=== PATIENT | female | born 1960 | race Caucasian/White ===

== ENCOUNTER 2023-05-11 10:52 | Inpatient (IN) | payer OTHER ==
[2023-05-11] MEDS ORDERED: ACETAMINOPHEN 500 MG TAB ONE (11:42)
[2023-05-11] MEDS ORDERED: PROMETHAZINE INJ 25 MG/ML AMP ONE (11:42)
[2023-05-11 11:49] LABS: Absolute Lymphocytes (CBC) 0.8 K/uL (0.7-4.9); Hematocrit 40.1 % (36.0-45.0); Lymphocytes % 6.1 % (15.3-44.8); MCV 89.8 fL (80-100); MPV 7.9 fL (7.6-11.3); RBC Red Blood Cell Count 4.47 M/uL (3.86-4.86)
[2023-05-11 11:54] LABS: Potassium 3.8 mEq/L (3.5-5.1)
--- NOTE | 2023-05-11 12:12 | RAD REPORT ---
EXAM DESCRIPTION: RAD - Chest Single View - 05/11/2023 11:59 am CLINICAL HISTORY: CHEST PAIN Chest pain. COMPARISON: No comparisons FINDINGS: Portable technique limits examination quality. Moderately severe bilateral pulmonary opacities are present, greater on the right, likely representin g pneumonia. The heart is normal in size. No displaced fractures.
--- NOTE | 2023-05-11 12:47 | EDPHYS ---
Physician Documentation [facility] Name: Vidya Varela Age: 62 yrs Sex: Female : 1960 Arrival Date: 05/11/2023 Time: 10:52 Bed 14 Private MD: ED Physician Chung Lee HPI: 05/11 11:26 This 62 yrs old Female presents to ER via EMS with complaints of Headache, Nausea. ms3 11:26 62-year-old female with past medical history of hypertension presents via [facility] ms3 for chest tightness that began at 6:30 AM. Patient states she is having chills, shaking, nausea, headache. EMS states in route patient's vital signs were stable, patient was given Zofran and IV fluids. Patient's blood glucose level was noted to be 108.. Historical: - Allergies: 11:03 Codeine; db - Home Meds: 11:03 amlodipine 10 mg tablet 1 tab once [Active]; montelukast 10 mg oral tablet 1 tab db [Active]; atorvastatin 20 mg oral tablet 1 tab daily [Active]; escitalopram oxalate 20 mg oral tablet 1 tab daily [Active]; fluticasone propion-salmeterol 232-14 mcg/actuation inhalation Aerosol Powder, Breath Activ.with Sensor [Active]; - PMHx: 11:03 Hypertensive disorder; db - Immunization history:: Client reports receiving the 2nd dose of the Covid vaccine. - Social history:: Smoking status: Patient denies any tobacco usage or history of. ROS: 11:26 Constitutional: Negative for fever, and chills. Respiratory: Negative for shortness of ms3 breath, cough, wheezing, and pleuritic chest pain, Abdomen/GI: Negative for abdominal pain, nausea, vomiting, diarrhea, and constipation, MS/Extremity: Negative for injury and deformity. 11:26 Skin: Negative for injury, rash, and discoloration. 11:26 Cardiovascular: Positive for chest pain. 11:26 Neuro: Positive for headache. Exam: 11:26 Constitutional: This is a well developed, well nourished patient who is awake, alert, ms3 and in no acute distress. Head/Face: Normocephalic, atraumatic. Neck: Trachea midline, no cervical lymphadenopathy. Supple, full range of motion without nuchal rigidity, or vertebral point tenderness. No Meningismus. Chest/axilla: Normal chest wall appearance and motion. Nontender with no deformity. Cardiovascular: Regular rate and rhythm with a normal S1 and S2. No gallops, murmurs, or rubs. Normal PMI, no JVD. No pulse deficits. Respiratory: Lungs have equal breath sounds bilaterally, clear to auscultation and percussion. No rales, rhonchi or wheezes noted. No increased work of breathing, no retractions or nasal flaring. Abdomen/GI: Soft, non-tender, with normal bowel sounds. No distension or tympany. No guarding or rebound. No evidence of tenderness throughout. Skin: Warm, dry with normal turgor. Normal color with no rashes, no lesions, and no evidence of cellulitis. MS/ Extremity: Pulses equal, no cyanosis. Neurovascular intact. Full, normal range of motion. Neuro: Awake and alert, GCS 15, oriented to person, place, time, and situation. Cranial nerves II-XII grossly intact. Motor strength 5/5 in all extremities. Sensory grossly intact. Cerebellar exam normal. Normal gait. 11:30 ECG was reviewed by the Attending Physician. ms3 Vital Signs: 11:00 BP 140 / 85; Pulse 94; Resp 16; Temp 99.7(O); Pulse Ox 95% ; Weight 121.56 kg; Height 5 db ft. 4 in. ; 11:30 BP 148 / 79; Pulse 94; Resp 23; Pulse Ox 92% on 2 lpm NC; db 12:38 BP 138 / 82; Pulse 96; Resp 18; Temp 102(O); Pulse Ox 92% on 3 lpm NC; db 13:00 BP 125 / 73; Pulse 92; Resp 16; Pulse Ox 93% on 3 lpm NC; db 13:30 BP 122 / 74; Pulse 88; Resp 16; Pulse Ox 95% on R/A; db 14:00 BP 116 / 71; Pulse 89; Resp 18; Pulse Ox 94% on 3 lpm NC; db 14:45 BP 122 / 73; Pulse 88; Resp 18; Temp 100.3(O); Pulse Ox 94% on 3 lpm NC; db 11:00 Body Mass Index 46.00 (121.56 kg, 162.56 cm) db MDM: 11:03 Patient medically screened. ms3 11:26 Differential diagnosis: ACS vs Tension POLANCO vs Anxiety. ms3 12:49 Data reviewed: vital signs, nurses notes, lab test result(s), radiologic studies, plain ms3 films, and as a result, I will admit patient. Consideration of Admission/Observation Patient was admitted/placed on observation. Management of patient was discussed with the following: Hospitalist: Discussed case with [employer] PATTERN INSPECTOR with Dr Salcido. He accepts patient on his behalf.. I considered the following discharge prescriptions or medication management in the emergency department Medications were administered in the Emergency Department. See MAR. Independent interpretation of the following test(s) in the Emergency Department X-Ray: My interpretation is CXR image reviewed by me shows R and L lung infiltrates. R>L.. 13:21 Care significantly affected by the following chronic conditions: Hypertension, Obesity. ms3 Counseling: I had a detailed discussion with the patient and/or guardian regarding: the historical points, exam findings, and any diagnostic results supporting the discharge/admit diagnosis, lab results, radiology results, the need for further work-up and treatment in the hospital. Response to treatment: the patient's symptoms have mildly improved after treatment, and as a result, I will admit patient. 05/11 11:03 Order name: Basic Metabolic Panel; Complete Time: 12:35 ms3 05/11 11:03 Order name: CBC with Diff; Complete Time: 12:35 ms3 05/11 11:03 Order name: Troponin HS; Complete Time: 12:35 ms3 05/11 12:35 Order name: Blood Culture Adult (2) ms3 05/11 12:35 Order name: Lactate w/ 2H reflex if indic.; Complete Time: 13:21 ms3 05/11 12:35 Order name: Protime (+inr); Complete Time: 13:21 ms3 05/11 12:35 Order name: Ptt, Activated; Complete Time: 13:21 ms3 05/11 12:35 Order name: LFT's; Complete Time: 13:21 ms3 05/11 11:03 Order name: XRAY Chest (1 view); Complete Time: 12:35 ms3 05/11 11:03 Order name: EKG; Complete Time: 11:04 ms3 05/11 11:03 Order name: Cardiac monitoring; Complete Time: 11:52 ms3 05/11 11:03 Order name: EKG - Nurse/Tech; Complete Time: 11:15 ms3 05/11 11:03 Order name: IV Saline Lock; Complete Time: 11:53 ms3 05/11 11:03 Order name: Labs collected and sent; Complete Time: 11:53 ms3 05/11 11:03 Order name: O2 Per Protocol; Complete Time: 11:53 ms3 05/11 11:03 Order name: O2 Sat Monitoring; Complete Time: 11:53 ms3 05/11 12:35 Order name: Accucheck; Complete Time: 13:11 ms3 05/11 12:35 Order name: IV Saline Lock - Large Bore; Complete Time: 13:11 ms3 05/11 12:35 Order name: Vital Signs; Complete Time: 13:11 ms3 EC:30 Rate is 96 beats/min. Rhythm is regular. QRS Kennedy is Normal. UT interval is normal. QRS ms3 interval is normal. Clinical impression: NSR w/ Non-specific ST/T Changes. Interpreted by me. Reviewed by me. Administered Medications: 11:45 Drug: Acetaminophen PO 1000 mg Route: PO; db 13:32 Follow up: Response: No adverse reaction db 11:45 Drug: Promethazine IVP 25 mg Route: IVP; Site: right antecubital; db 13:32 Follow up: Response: No adverse reaction db 13:20 Drug: Rocephin IV 1 grams Route: IV; Rate: calculated rate; Site: right antecubital; db 13:32 Follow up: Response: No adverse reaction; IV Status: Completed infusion; IV Intake: 50mldb 13:31 Drug: AZITHromycin IVPB 500 mg Route: IVPB; Infused Over: 1 hrs; Site: left antecubital;db 14:46 Follow up: Response: No adverse reaction; IV Status: Completed infusion; IV Intake: db 250ml Disposition Summary: 05/11/23 12:46 Hospitalization Ordered Hospitalization Status: Inpatient Admission ms3 Provider: Demar Salcido ms3 Location: Telemetry/MedSurg (Inpatient) ms3 Condition: Stable ms3 Problem: new ms3 Symptoms: are unchanged ms3 Bed/Room Type: Standard ms3 Room Assignment: 207(05/11/23 14:19) [facility] Diagnosis - Pneumonia, unspecified organism ms3 - Acute respiratory failure with hypoxia ms3 - Fever, unspecified ms3 Forms: - Medication Reconciliation Form ms3 - SBAR form ms3 Signatures: Dispatcher [employer] EDRamo Zavala RN RN ja1 Chung Lee DO DO ms3 Winter Cobian RN RN db Corrections: (The following items were deleted from the chart) 14:19 12:46 ms3 ja1
--- NOTE | 2023-05-11 12:47 | ER ---
Nurse's Notes [facility] Name: Vidya Varela Age: 62 yrs Sex: Female : 1960 Arrival Date: 05/11/2023 Time: 10:52 Bed 14 Private MD: Diagnosis: Pneumonia, unspecified organism;Acute respiratory failure with hypoxia;Fever, unspecified Presentation: 05/11 11:00 Chief complaint: EMS states: Complains of headache and nausea. no chest pain. Anxious. db recent family loss. Glucose 108. High BP, Anxiety. Coronavirus screen: Vaccine status: Patient reports receiving the 2nd dose of the covid vaccine. Client denies travel out of the [place] in the last 14 days. At this time, the client does not indicate any symptoms associated with coronavirus-19. Ebola Screen: Patient negative for fever greater than or equal to 101.5 degrees Fahrenheit, and additional compatible Ebola Virus Disease symptoms Patient denies exposure to infectious person. Patient denies travel to an Ebola-affected area in the 21 days before illness onset. No symptoms or risks identified at this time. Initial Sepsis Screen: Does the patient meet any 2 criteria? HR > 90 bpm. Does the patient have a suspected source of infection? No. Patient's initial sepsis screen is negative. Risk Assessment: Do you want to hurt yourself or someone else? Patient reports no desire to harm self or others. Onset of symptoms was May 11, 2023. 11:00 Method Of Arrival: EMS: [facility] db 11:00 Acuity: LOYD 3 db Triage Assessment: 12:42 Headache History: The patient has had previous headaches and this one is more severe db than previous episodes. General: Appears in no apparent distress. uncomfortable, Behavior is calm, cooperative. Pain: Pain began gradually, Also complains of no other associated symptoms. 14:32 Pain: Pain. db Historical: - Allergies: 11:03 Codeine; db - Home Meds: 11:03 amlodipine 10 mg tablet 1 tab once [Active]; montelukast 10 mg oral tablet 1 tab db [Active]; atorvastatin 20 mg oral tablet 1 tab daily [Active]; escitalopram oxalate 20 mg oral tablet 1 tab daily [Active]; fluticasone propion-salmeterol 232-14 mcg/actuation inhalation Aerosol Powder, Breath Activ.with Sensor [Active]; - PMHx: 11:03 Hypertensive disorder; db - Immunization history:: Client reports receiving the 2nd dose of the Covid vaccine. - Social history:: Smoking status: Patient denies any tobacco usage or history of. Screenin:54 [facility] ED Fall Risk Assessment (Adult) History of falling in the last 3 months, db including since admission No falls in past 3 months (0 pts) Confusion or Disorientation No (0 pts) Intoxicated or Sedated No (0 pts) Impaired Gait No (0 pts) Mobility Assist Device Used No (0 pt) Altered Elimination No (0 pt) Score/Fall Risk Level 0 - 2 = Low Risk Oriented to surroundings, Maintained a safe environment. Abuse screen: Denies threats or abuse. Denies injuries from another. Nutritional screening: No deficits noted. Tuberculosis screening: No symptoms or risk factors identified. Assessment: 11:30 Reassessment: Patient appears in no apparent distress at this time. Patient and/or db family updated on plan of care and expected duration. Pain level reassessed. Patient is alert, oriented x 3, equal unlabored respirations, skin warm/dry/pink. patient complains of a headache. General: Appears in no apparent distress. comfortable, Behavior is calm, cooperative. Pain: Complains of pain in head. Neuro: Level of Consciousness is awake, alert, obeys commands, Oriented to person, place, time, situation, Speech is normal. Respiratory: Airway is patent Respiratory effort is even, unlabored, Respiratory pattern is regular, symmetrical. 11:53 Reassessment: notified Dr. Lee patient O2 saturation dipped down into 80's. Patient db placed on NC 2L. 13:00 Reassessment: Patient appears in no apparent distress at this time. Patient and/or db family updated on plan of care and expected duration. Pain level reassessed. Patient is alert, oriented x 3, equal unlabored respirations, skin warm/dry/pink. 14:10 Reassessment: Patient appears in no apparent distress at this time. Patient and/or db family updated on plan of care and expected duration. Pain level reassessed. Patient is alert, oriented x 3, equal unlabored respirations, skin warm/dry/pink. 14:32 Reassessment: Report given to YUSRA Guy on 2nd floor for 207. db Vital Signs: 11:00 BP 140 / 85; Pulse 94; Resp 16; Temp 99.7(O); Pulse Ox 95% ; Weight 121.56 kg; Height 5 db ft. 4 in. ; 11:30 BP 148 / 79; Pulse 94; Resp 23; Pulse Ox 92% on 2 lpm NC; db 12:38 BP 138 / 82; Pulse 96; Resp 18; Temp 102(O); Pulse Ox 92% on 3 lpm NC; db 13:00 BP 125 / 73; Pulse 92; Resp 16; Pulse Ox 93% on 3 lpm NC; db 13:30 BP 122 / 74; Pulse 88; Resp 16; Pulse Ox 95% on R/A; db 14:00 BP 116 / 71; Pulse 89; Resp 18; Pulse Ox 94% on 3 lpm NC; db 14:45 BP 122 / 73; Pulse 88; Resp 18; Temp 100.3(O); Pulse Ox 94% on 3 lpm NC; db 11:00 Body Mass Index 46.00 (121.56 kg, 162.56 cm) db ED Course: 10:59 Patient arrived in ED. db 11:03 Triage completed. db 11:03 Chung Lee DO is Attending Physician. ms3 11:08 Arm band placed on Patient placed. db 11:08 Maintain EMS IV. Gauge \T\ site: 20 G right AC. db 11:15 Winter Cobian, RN is Primary Nurse. db 11:55 Patient has correct armband on for positive identification. Bed in low position. Side db rails up X 1. Client placed on continuous cardiac and pulse oximetry monitoring. NIBP monitoring applied. 12:00 XRAY Chest (1 view) In Process Unspecified. EDMS 12:46 Demar Salcido MD is Hospitalizing Provider. ms3 12:55 First set of blood cultures drawn by me. db 13:07 Inserted saline lock: 20 gauge in left antecubital area, using aseptic technique. Blood db collected. 13:07 Second set of blood cultures drawn by me. db 14:34 No provider procedures requiring assistance completed. Patient admitted, IV remains in db place. Administered Medications: 11:45 Drug: Acetaminophen PO 1000 mg Route: PO; db 13:32 Follow up: Response: No adverse reaction db 11:45 Drug: Promethazine IVP 25 mg Route: IVP; Site: right antecubital; db 13:32 Follow up: Response: No adverse reaction db 13:20 Drug: Rocephin IV 1 grams Route: IV; Rate: calculated rate; Site: right antecubital; db 13:32 Follow up: Response: No adverse reaction; IV Status: Completed infusion; IV Intake: 50mldb 13:31 Drug: AZITHromycin IVPB 500 mg Route: IVPB; Infused Over: 1 hrs; Site: left antecubital;db 14:46 Follow up: Response: No adverse reaction; IV Status: Completed infusion; IV Intake: db 250ml Medication: 14:32 VIS not applicable for this client. db Intake: 13:32 IV: 50ml; Total: 50ml. db 14:46 IV: 250ml; Total: 300ml. db Outcome: 12:46 Decision to Hospitalize by Provider. ms3 14:36 Admitted to ER Hold. Please see [facility] for further documentation. db 14:36 Condition: stable 14:36 Instructed on the need for admit. 14:46 Patient left the ED. db Signatures: Dispatcher [employer] EDMS Chung Lee DO DO ms3 Winter Cobian, RN RN db
[2023-05-11 13:08] LABS: Protime INR 0.97
[2023-05-11 13:20] LABS: Albumin 3.3 g/dL (3.4-5.0); Bilirubin Direct 0.4 mg/dL (0-0.2); Bilirubin Indirect, Calculated 0.7 mg/dL (0.2-0.8); Bilirubin Total 1.1 mg/dL (0.2-1.0); Protein, Total 6.7 g/dL (6.4-8.2)
[2023-05-11] MEDS ORDERED: CEFTRIAXONE 1000 MG/VIAL ONE (13:22)
[2023-05-11] MEDS ORDERED: AZITHROMYCIN 500 MG INJ IVPB ONE (13:22)
[2023-05-11] MEDS ORDERED: NA CHLORIDE 0.9% 250 ML ONE (13:23)
[2023-05-11] MEDS ORDERED: NA CHLORIDE 0.9% 50 ML ONE (13:23)
[2023-05-11] MEDS ORDERED: ONDANSETRON 4 MG/2 ML VIAL IV PRN (14:59)
[2023-05-11] MEDS: TRAMADOL HCL 50 MG TAB PO PRN (15:04)
[2023-05-11] MEDS ORDERED: HYDROCODONE/APAP 5/325 MG TAB PO PRN (15:11)
[2023-05-11] MEDS ORDERED: GUAIFENESIN/CODEINE 5ML UCUP PO PRN (15:14)
--- NOTE | 2023-05-11 15:20 | P.HP ---
Certification for Inpatient Patient admitted to: Inpatient With expected LOS: >2 Midnights Patient will require the following post-hospital care: None Practitioner: I am a practitioner with admitting privileges, knowledge of patient current condition, hospital course, and medical plan of care. Services: Services provided to patient in accordance with Admission requirements found in Title 42 Section 412.3 of the Code of Federal Regulations Patient History Date of Service: 05/11/23 Reason for admission: SOB History of Present Illness: Patient is a 62-year-old female with a past medical history significant for hypertension, allergic rhinitis, hyperlipidemia, depression, asthma, morbid obesity who presents with complaint of shortness of breath onset this morning. Patient reported that she has been having episodes of pneumonia in the last 2 months. She reported that she completed her antibiotics some time ago. Patient is a poor historian and unable to provide accurate history. Patient reported that she felt better after the antibiotics completion but began having similar symptoms this morning. Patient also reports chest pain located in the substernal chest area rated as 9/10 in severity and described as pressure in quality. Patient reported associated signs and symptoms of chills, fever, headache, fatigue, nausea and generalized weakness. Patient denies any other signs and symptoms. Symptoms are aggravated or relieved by nothing. Patient was brought to the hospital due to worsening symptoms. Allergies codeine Allergy (Unknown, Verified 05/11/23 15:22) Nausea/Vomiting Home Medications: Amlodipine Besylate 10 mg PO DAILY 05/11/23 Atorvastatin Calcium 20 mg PO DAILY 05/11/23 Escitalopram [Lexapro] 20 mg PO DAILY 05/11/23 Fluticasone/Salmeterol [Fluticasone-Salmeterol 232-14] 1 each IH DAILY 05/11/23 Montelukast Sodium 10 mg PO DAILY 05/11/23 - Past Medical/Surgical History Has patient received pneumonia vaccine in the past: No Diabetic: No -: HTN -: HLD -: Depresssion -: Allergic rhinitis -: Morbid obesity -: Asthma. Past Surgical History: Reviewed- Non-Contributory - Family History Family History: Reviewed- Non-Contributory - Social History Smoking Status: Never smoker Alcohol use: Yes CD- Drugs: No Caffeine use: No Place of Residence: Home Review of Systems General: Fever, Chills, Weakness Eyes: Unremarkable ENT: Unremarkable Respiratory: Shortness of Breath Cardiovascular: Chest Pain Gastrointestinal: Nausea Genitourinary: Unremarkable Musculoskeletal: Unremarkable Integumentary: Unremarkable Neurological: Weakness, Other (POLANCO) Lymphatics: Unremarkable Physical Examination - Vital Signs Temperature: 100.3 F Blood Pressure: 122/73 Pulse: 88 Respirations: 18 - Physical Exam General: Alert, In no apparent distress, Oriented x3, Cooperative HEENT: Atraumatic, PERRLA, Mucous membr. moist/pink, EOMI, Sclerae nonicteric Neck: Supple, 2+ carotid pulse no bruit, No LAD, Without JVD or thyroid abnormality Respiratory: Diminished Cardiovascular: No edema, Regular rate/rhythm, Normal S1 S2 Capillary refill: <2 Seconds Gastrointestinal: Normal bowel sounds, Soft and benign, Non-distended, No tenderness Musculoskeletal: No clubbing, No swelling, No contractures, No tenderness Integumentary: No rashes Neurological: Normal speech, Normal tone, Normal affect Lymphatics: No axilla or inguinal lymphadenopathy - Studies Laboratory Data (last 24 hrs) 05/11/23 12:48: Total Bilirubin 1.1 H, AST 25, ALT 22, Alkaline Phosphatase 172 H 05/11/23 12:48: PT 10.7, INR 0.97, APTT 31.4 05/11/23 11:20: WBC 12.60 H, Hgb 13.2, Hct 40.1, Plt Count 192 05/11/23 11:20: Sodium 140, Potassium 3.8, BUN 10, Creatinine 0.73, Glucose 93 Assessment and Plan - Plan --Pneumonia. Patient reports previous bouts of pneumonia in the last 2 months. Chest x-ray indicates Moderately severe bilateral pulmonary opacities are present, greater on the right, likely representing pneumonia. Patient placed on neb treatment with albuterol\Atrovent. Continue antibiotics and O2 therapy. CT chest for further evaluation. Pulmonology consulted. Will await further recommendations. --Chest pain. Likely atypical. Will trend serial troponins--currently negative. Echocardiogram pending to assess cardiac structures and function. Telemetry to monitor for any significant arrhythmia. Continue supportive care. --Hypertension. Poorly controlled. Continue home medications and labetalol as needed. --Allergic rhinitis. Continue home medication. --Depression. Continue home medication. --Moderate persistent asthma with exacerbation. Continue current treatment regimen. --Class III obesity. Likely secondary to excess calories intake. Patient counseled on weight reduction, diet and excise therapy. --Hyperlipidemia. Continue statin. --Leukocytosis. Likely secondary to pneumonia. Blood cultures pending. Continue antibiotics. We will continue to monitor WBC levels. --DVT prophylaxis with Lovenox subQ. Discharge Plan: Home Plan to discharge in: Greater than 2 days - Advance Directives Does patient have a Living Will: No Does patient have a Durable POA for Healthcare: No - Code Status/Comfort Care Code Status Assessed: Yes Physician Review: Patient Assessed, Agree with Above Assessment and Plan Critical Care: No
[2023-05-11] MEDS ORDERED: BENZONATATE 100 MG CAP PO PRN (16:11)
[2023-05-11 16:18] LABS: Phosphorus 2.6 mg/dL (2.5-4.9)
[2023-05-11] MEDS ORDERED: LABETALOL 20 MG/4ML SYRINGE IV PRN (16:28)
[2023-05-11] MEDS: ALBUTEROL 2.5 MG/3 ML NEB SOL NEB SCH (19:15)
[2023-05-11 21:37] LABS: Urine Bacteria None Seen /HPF (<20); Urine Mucus Slight /HPF (None Seen); Urine RBC <5 /HPF (None Seen)
[2023-05-11 21:43] LABS: Specific Gravity 1.025 (1.005-1.030); Urine Bilirubin NEGATIVE (Negative); Urine Blood Negative (Negative); Urine Clarity Clear (Clear); Urine Color Yellow (Yellow); Urine Glucose NEGATIVE (Negative); Urine Protein NEGATIVE (Negative); Urine Urobilinogen Normal (Normal)
--- NOTE | 2023-05-11 21:57 | RAD REPORT ---
EXAM DESCRIPTION: CT - Thorax Wo Con - 05/11/2023 9:46 pm CLINICAL HISTORY: sob COMPARISON: none TECHNIQUE: Computed axial tomography of the chest was obtained. Contrast was not requested. All CT scans are performed using dose optimization technique as appropriate and may include automated exposure control or mA/KV adjustment according to patient size. FINDINGS: The evaluation of mediastinum, edgard and vessels is limited secondary to lack of IV contras t administration. Moderate consolidation involves right upper and right lower lobes. [id number] consolidation left lower lobe. No mediastinal or hilar lymphadenopathy is seen. A pleural effusion is not present. No pericardial effusion Mild compression deformity involving a midthoracic vertebral body probably chronic IMPRESSION: Moderate right and mild to moderate left pneumonia. This should be followed until it is clear to help exclude a post obstructive process/underlying mass
[2023-05-12] MEDS: ACETAMINOPHEN 325 MG TABLET PO PRN ×2 (00:27→10:12)
[2023-05-12] MEDS: ALBUTEROL 2.5 MG/3 ML NEB SOL NEB SCH ×4 (01:30→19:20)
[2023-05-12 03:35] LABS: Hematocrit 36.4 % (36.0-45.0); Lymphocytes % 21.3 % (15.3-44.8); MCV 89.8 fL (80-100); MPV 8.4 fL (7.6-11.3); RBC Red Blood Cell Count 4.05 M/uL (3.86-4.86)
[2023-05-12 04:16] LABS: Potassium 3.5 mEq/L (3.5-5.1)
[2023-05-12] MEDS ORDERED: POTASSIUM 25 MEQ EFFERV TAB PO ONE (06:00)
[2023-05-12] MEDS ORDERED: CEFTRIAXONE 1,000 MG in NA CHLORIDE 0.9% 50 ML IVPB SCH ×2 (09:00→20:00)
[2023-05-12] MEDS: FLUTICASONE IH SCH (09:00)
[2023-05-12] MEDS ORDERED: AZITHROMYCIN IV 500 MG in NA CHLORIDE 0.9% 250 ML IVPB SCH (09:00)
[2023-05-12] MEDS: SALMETEROL IH SCH (09:00)
[2023-05-12] MEDS: ESCITALOPRAM 20 MG TAB PO SCH (10:07)
[2023-05-12] MEDS: levoFLOXacin 750 MG TAB PO SCH (10:07)
[2023-05-12] MEDS: MONTELUKAST 10 MG TAB PO SCH (10:07)
[2023-05-12] MEDS: ATORVASTATIN 20 MG TAB PO SCH (10:08)
[2023-05-12] MEDS: AMLODIPINE 10 MG TAB PO SCH (10:08)
[2023-05-12] MEDS: ASPIRIN 81 MG CHEWABLE TABLET PO SCH (10:08)
[2023-05-12] MEDS: ENOXAPARIN 40 MG/0.4 ML SQ SCH (10:08)
[2023-05-12] MEDS: predniSONE 20 MG TAB PO SCH ×2 (10:12→20:02)
--- NOTE | 2023-05-12 12:08 | P.CNS ---
Date of Consult: 05/12/23 Reason for Consult: Pneumonia Chief Complaint: SOB History of Present Illness: Fink is 62 years of age With tightness at 6:30 in the morning the third time she has had pneumonia since her COVID infection is any cough or phlegm has had some chills and does not smoke. In the hospital with right upper lobe consolidation Allergies codeine Allergy (Unknown, Verified 05/11/23 15:22) Nausea/Vomiting Home Medications: Amlodipine Besylate 10 mg PO DAILY 05/11/23 Atorvastatin Calcium 20 mg PO DAILY 05/11/23 Escitalopram [Lexapro] 20 mg PO DAILY 05/11/23 Fluticasone/Salmeterol [Fluticasone-Salmeterol 232-14] 1 each IH DAILY 05/11/23 Montelukast Sodium 10 mg PO DAILY 05/11/23 - Past Medical/Surgical History Diabetic: No -: HTN -: HLD -: Depresssion -: Allergic rhinitis -: Morbid obesity -: Asthma. - Social History Alcohol use: Yes CD- Drugs: No Caffeine use: No Place of Residence: Home Review of Systems 10-point ROS is otherwise unremarkable Physical Examination Temp Pulse Resp BP Pulse Ox 98.3 F 71 16 118/59 L 90 L 05/12/23 11:12 05/12/23 08:00 05/12/23 08:00 05/12/23 08:00 05/12/23 08:00 General: Alert, Oriented x3 HEENT: Atraumatic Neck: Supple Respiratory: Crackles/rales (The right side) Laboratory Data (last 24 hrs) 05/11/23 12:48: Phosphorus 2.6, Magnesium 2.0 05/11/23 12:48: Total Bilirubin 1.1 H, AST 25, ALT 22, Alkaline Phosphatase 172 H 05/11/23 12:48: PT 10.7, INR 0.97, APTT 31.4 05/11/23 11:20: WBC 12.60 H, Hgb 13.2, Hct 40.1, Plt Count 192 - Problems (1) Pneumonia Current Visit: Yes Status: Acute Plan: Patient is 62 years of age admitted with bilateral pneumonia right worse than the left this is her third time she has had pneumonia since COVID scan reviewed and has mildly elevated white count 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 levofloxacin DC IV antibiotics we will for discharge once her sats are above 90% on room air and also takes a bronchodilator at home presumed obesity induced asthma Qualifiers: Pneumonia type: due to unspecified organism
[2023-05-12 15:43] VITALS: BMI 45.3
--- NOTE | 2023-05-12 18:51 | P.PN ---
Subjective Date of Service: 05/12/23 Chief Complaint: SOB Patient is experiencing intermittent fever. She is currently tolerating room air. She reports shortness of breath with exertion. Physical Examination - Vital Signs Temperature: 98.7 F Blood Pressure: 131/71 Pulse: 79 Respirations: 14 Pulse Ox (%): 92 Assessment And Plan - Plan Physical Exam General: Alert, In no apparent distress, Oriented x3. Neck: Supple, 2+ carotid pulse no bruit, No LAD, Without JVD or thyroid abnormality Respiratory: Diminished, mild scattered wheezes. Cardiovascular: No edema, Regular rate/rhythm, Normal S1 S2 Gastrointestinal: Normal bowel sounds, Soft and benign, Non-distended, No tenderness Musculoskeletal: No swelling, No tenderness Integumentary: No rashes Neurological: Normal speech, no focal motor deficit. Plan Pneumonia/moderate persistent asthma with exacerbation/sepsis Patient reports previous bouts of pneumonia 2 months ago. Chest x-ray indicates Moderately severe bilateral pulmonary opacities are present, greater on the right, likely representing pneumonia. Continue neb treatment. Seen by pulmonary and antibiotics changed to oral Levaquin. Add IV Rocephin due to intermittent fever. Monitor for improvement. Chest pain. Pleuritic. Serial troponin is negative Echocardiogram result is pending. Supportive measures Hypertension. Poorly controlled. Continue home medications and labetalol as needed. Class III obesity. Likely secondary to excess calories intake. DVT prophylaxis: Lovenox subQ.
[2023-05-13] MEDS: ALBUTEROL 2.5 MG/3 ML NEB SOL NEB SCH ×2 (01:20→07:43)
[2023-05-13] MEDS: TRAMADOL HCL 50 MG TAB PO PRN (01:32)
[2023-05-13 04:23] LABS: Potassium 4.2 mEq/L (3.5-5.1)
--- NOTE | 2023-05-13 08:24 | EKG ---
Test Date: 2023-05-11 Test Time: 11:03:07 Deputy Sheriff: WEI MEASUREMENT RESULTS: Intervals: Rate: 96 AR: 170 QRSD: 96 QT: 342 QTc: 432 [place]: P: 36 AR: 170 QRS: 26 T: 24 INTERPRETIVE STATEMENTS: Normal sinus rhythm Cannot rule out Anterior infarct, age undetermined Abnormal ECG Compared to ECG 06/22/2009 11:49:28 Myocardial infarct finding now present Electronically Signed On 05-13-23 08:18:32 CDT by Ronaldo Genao
--- NOTE | 2023-05-13 08:55 | ECHO ---
HEIGHT: 5 ft 4 in WEIGHT: 264 lb 3 oz DATE OF STUDY: 05/12/[address]: Samir Mata 2-DIMENSIONAL: YES M.MODE: YES DOPPLER: YES COLOR FLOW: YES TDS: NO PORTABLE: YES DEFINITY: NO BUBBLE STUDY: NO DIAGNOSIS: CHEST PAIN CARDIAC HISTORY: CATHERIZATION: NO SURGERY: NO PROSTHETIC VALVE: NO PACEMAKER: NO MEASUREMENTS (cm) DIASTOLIC (NORMALS) SYSTOLIC (NORMALS) IVSd 1.1 (0.6-1.2) LA Diam 2.4 (1.9-4.0) LVEF 64% LVIDd 4.6 (3.5-5.7) LVIDs 3.0 (2.0-3.5) %FS 35% LVPWd 1.2 (0.6-1.2) Ao Diam 2.7 (2.0-3.7) 2 DIMENSIONAL ASSESSMENT: RIGHT ATRIUM: NORMAL LEFT ATRIUM: NORMAL RIGHT VENTRICLE: NORMAL LEFT VENTRICLE: NORMAL TRICUSPID VALVE: NORMAL MITRAL VALVE: NORMAL PULMONIC VALVE: NORMAL AORTIC VALVE: NORMAL PERICARDIAL EFFUSION: NONE AORTIC ROOT: NORMAL LEFT VENTRICULAR WALL MOTION: NORMAL DOPPLER/COLOR FLOW: NORMAL COMMENTS: 1. NORMAL 2D ECHOCARDIOGRAM WITH DOPPLER. 2. NO WALL MOTION ABNORMALITY. 3. NO EFFUSION. TECHNOLOGIST: WAYLON MAK
[2023-05-13] MEDS: FLUTICASONE IH SCH (09:00)
[2023-05-13] MEDS ORDERED: predniSONE 10 MG TAB PO SCH (09:00)
[2023-05-13] MEDS: SALMETEROL IH SCH (09:00)
[2023-05-13 09:04] VITALS: BP 118/58; TEMP 97.9
[2023-05-13] MEDS: levoFLOXacin 750 MG TAB PO SCH (09:53)
[2023-05-13] MEDS: ESCITALOPRAM 20 MG TAB PO SCH (09:53)
[2023-05-13] MEDS: MONTELUKAST 10 MG TAB PO SCH (09:53)
[2023-05-13] MEDS: ASPIRIN 81 MG CHEWABLE TABLET PO SCH (09:53)
[2023-05-13] MEDS: ATORVASTATIN 20 MG TAB PO SCH (09:53)
[2023-05-13] MEDS: AMLODIPINE 10 MG TAB PO SCH (09:54)
[2023-05-13] MEDS: ENOXAPARIN 40 MG/0.4 ML SQ SCH (09:54)
[2023-05-13 10:12] VITALS: O2SAT 91
--- NOTE | 2023-05-13 10:18 | P.DS ---
Admission Date: 05/11/23 Discharge Date: 05/13/23 Disposition: ROUTINE DISCHARGE Discharge Condition: FAIR Reason for Admission: SOB - Problems (1) Pneumonia Status: Acute Qualifiers: Pneumonia type: due to unspecified organism Brief History of Present Illness: Patient is a 62-year-old female with a past medical history significant for hypertension, allergic rhinitis, hyperlipidemia, depression, asthma, morbid obesity who presents with complaint of shortness of breath onset this morning. Patient reported that she has been having episodes of pneumonia since the last 2 months. She reported that she completed her antibiotics some time ago. Patient is a poor historian and unable to provide accurate history. Patient also reported chest pain located in the substernal chest area rated as 9/10 in severity and described as pressure in quality. Patient reported associated signs and symptoms of chills, fever, headache, fatigue, nausea and generalized weakness. Hospital Course: Pneumonia/moderate persistent asthma with exacerbation/sepsis Patient reports previous bouts of pneumonia 2 months ago. Chest x-ray indicated Moderately severe bilateral pulmonary opacities are present, greater on the right, likely representing pneumonia. Patient treated with Rocephin and Zithromax and transition to oral treated with oral Levaquin and IV Rocephin. Continue neb treatment. Seen by pulmonary who assisted with management. Patient clinically improved rapidly. She states she feels at baseline today. Fever resolved. Repeat chest x-ray shows partial improvement in the pneumonia. Chest pain. Pleuritic. Serial troponin is negative Echocardiogram: Unremarkable Hypertension. Her blood pressure improved with home antihypertensives. Class III obesity. Weight loss by diet and exercise advised. Vital Signs/Physical Exam: Temp Pulse Resp BP Pulse Ox 97.9 F 88 16 118/58 L 91 05/13/23 08:00 05/13/23 09:54 05/13/23 08:00 05/13/23 09:54 05/13/23 08:00 General: Alert, In no apparent distress, Oriented x3, Obese HEENT: Mucous membr. moist/pink Neck: JVD not distended Respiratory: Clear to auscultation bilaterally, Crackles/rales (Mild crackles on the left base) Cardiovascular: No edema, Regular rate/rhythm, Normal S1 S2 Gastrointestinal: Normal bowel sounds, Soft and benign, Non-distended Musculoskeletal: No swelling Integumentary: No rashes, No cyanosis Neurological: Normal strength at 5/5 x4 extr Laboratory Data at Discharge: WBC 13.90 thou/uL (4.3-10.9) H 05/12/23 02:40 Hgb 12.1 g/dL (12.0-15.0) D 05/12/23 02:40 Hct 36.4 % (36.0-45.0) 05/12/23 02:40 Plt Count 179 thou/uL (152-406) 05/12/23 02:40 PT 10.7 SECONDS (9.5-12.5) 05/11/23 12:48 INR 0.97 05/11/23 12:48 APTT 31.4 SECONDS (24.3-36.9) 05/11/23 12:48 Sodium 140 mEq/L (136-145) 05/13/23 02:41 Potassium 4.2 mEq/L (3.5-5.1) D 05/13/23 02:41 BUN 10 mg/dL (7-18) 05/13/23 02:41 Creatinine 0.62 mg/dL (0.55-1.02) 05/13/23 02:41 Glucose 155 mg/dL (74-106) H 05/13/23 02:41 Phosphorus 2.6 mg/dL (2.5-4.9) 05/11/23 12:48 Magnesium 2.0 mg/dL (1.6-2.4) 05/11/23 12:48 Total Bilirubin 1.1 mg/dL (0.2-1.0) H 05/11/23 12:48 AST 25 U/L (15-37) 05/11/23 12:48 ALT 22 U/L (13-56) 05/11/23 12:48 Alkaline Phosphatase 172 U/L (45-117) H 05/11/23 12:48 Triglycerides 67 mg/dL (<150) 05/12/23 02:40 Cholesterol 130 mg/dL (<200) 05/12/23 02:40 HDL Cholesterol 60 mg/dL (40-60) 05/12/23 02:40 Cholesterol/HDL Ratio 2.17 05/12/23 02:40 Home Medications: Amlodipine Besylate 10 mg PO DAILY 05/11/23 Atorvastatin Calcium 20 mg PO DAILY 05/11/23 Escitalopram [Lexapro*] 20 mg PO DAILY 05/11/23 Fluticasone/Salmeterol [Fluticasone-Salmeterol 232-14] 1 each IH DAILY 05/11/23 Montelukast Sodium 10 mg PO DAILY 05/11/23 Benzonatate [Tessalon Perle*] 200 mg PO TID PRN #60 cap 05/13/23 Cefuroxime Axetil [Cefuroxime] 500 mg PO BID #20 tab 05/13/23 levoFLOXacin [Levaquin*] 750 mg PO DAILY #12 tab 05/13/23 predniSONE [Deltasone*] 10 mg PO BID #14 tab 05/13/23 New Medications: Cefuroxime Axetil [Cefuroxime] 500 mg PO BID #20 tab predniSONE [Deltasone*] 10 mg PO BID #14 tab levoFLOXacin [Levaquin*] 750 mg PO DAILY #12 tab Benzonatate [Tessalon Perle*] 200 mg PO TID PRN #60 cap PRN Reason: COUGH - 1ST LINE Followup: Uriel Coto FNP [Primary Care Provider] - 1 Week (Call to schedule appointment) Malcolm Bai MD [ACTIVE - CAN ADMIT] - (WITHIN 2 WEEKS ) Time spent managing pt's care (in minutes): 37
--- NOTE | 2023-05-13 10:47 | RAD REPORT ---
EXAM DESCRIPTION: Laquita Single View05/13/2023 10:41 am CLINICAL HISTORY: Chest pain COMPARISON: May 11, 2023 FINDINGS: Partial resolution in bilateral pulmonary opacities Heart remains enlarged IMPRESSION: Partial resolution bilateral pneumonia
== END 2023-05-13 10:59 | disposition home or self-care (01) | DRG 871 ==
LOC: ER 10:52 → 2ND 14:14
PROVIDERS: ADMIT Hospitalist; ATTEND Internal Medicine
DX: A41.9 Sepsis, unspecified organism (principal); J18.9 Pneumonia, unspecified organism; J96.01 Acute respiratory failure with hypoxia; Z68.42 Body mass index [BMI] 45.0-49.9, adult; J45.41 Moderate persistent asthma with (acute) exacerbation; E66.01 Morbid (severe) obesity due to excess calories; I10 Essential (primary) hypertension; E78.5 Hyperlipidemia, unspecified; F32.A Depression, unspecified; Z88.5 Allergy status to narcotic agent; Z79.52 Long term (current) use of systemic steroids; Z79.899 Other long term (current) drug therapy
CPT/HCPCS: 36415; 71045; 71250; 80048; 80061; 80076; 81001; 83605; 83735; 83880; 84100; 84484; 85025; 85610; 85730; 87040; 93005; 93306; 96365; 96375; 99285; J0696; J1650; J2550; J7050; J7512; J7613